=== PATIENT | male | born 1990 | race American Indian/Alaskan Native ===

== ENCOUNTER 2022-03-06 18:05 | Emergency (ER) | payer SELFPAY ==
[2022-03-06 21:03] LABS: Hemoglobin 13.2 gm/dl (11.8-15.2); Mean Corpuscular HGB Conc 34 % (32-34); Mean Corpuscular Volume 93 fl (84-94); Platelet Count 282 K/mm3 (140-440); Red Blood Count 4.21 M/mm3 (3.65-5.03); Red Cell Distribution Width 12.8 % (13.2-15.2)
[2022-03-06 21:24] LABS: Alanine Aminotransferase 122 units/L (7-56); Albumin 4.1 g/dL (3.9-5); Blood Urea Nitrogen 11 mg/dL (9-20); Calcium 9.4 mg/dL (8.4-10.2); Hemolysis Index 8
[2022-03-06 21:32] LABS: BUN/Creatinine Ratio 16
[2022-03-06] MEDS ORDERED: FAMOTIDINE 20 MG TAB PO ONE (21:40)
[2022-03-06] MEDS ORDERED: diphenhydrAMINE 25 MG CAP PO ONE (21:40)
[2022-03-06] MEDS ORDERED: predniSONE 20 MG TAB PO ONE (21:40)
--- NOTE | 2022-03-06 21:45 | Emergency Department Report ---
HPI - General Chief Complaint: Allergic Reaction Time Seen by Provider: 03/06/22 21:16 - HPI HPI: Room 4 The patient is a 31-year-old male present with chief complaint of allergic reaction. The patient states for the past 2 weeks he has broken out into a rash that is pruritic. Patient initially denies having any new exposures but then states he changed laundry detergents approximately 3 weeks ago. Patient also states for the past 2 weeks he has had intermittent sharp chest pain but does not have any currently. Patient denies history of cough or shortness of breath. ED Past Medical Hx - Past Medical History Previous Medical History?: No - Surgical History Past Surgical History?: No - Family History Family history: no significant - Social History Smoking Status: Never Smoker Substance Use Type: None (Denies illicit drug use), Alcohol (Occasional) - Medications Home Medications: Home Medications Medication Instructions Recorded Confirmed Last Taken Type Famotidine [Pepcid] 20 mg PO BID #6 tablet 03/06/22 Unknown Rx Prednisone [predniSONE 10 mg 10 mg PO .TAPER #1 03/06/22 Unknown Rx (6-Day Pack, 21 Tabs)] diphenhydrAMINE [Benadryl CAP] 50 mg PO Q6HR #24 capsule 03/06/22 Unknown Rx ED Review of Systems ROS: Stated complaint: RASH Other details as noted in HPI Constitutional: no symptoms reported Eyes: denies: eye pain ENT: denies: throat pain Respiratory: denies: cough, shortness of breath Cardiovascular: chest pain Endocrine: no symptoms reported Gastrointestinal: denies: abdominal pain Genitourinary: denies: dysuria Musculoskeletal: denies: back pain Skin: rash, pruritus Neurological: denies: headache Physical Exam - Physical Exam Vital Signs: Vital Signs 03/06/22 21:04 Temperature 98.4 F Pulse Rate 71 Respiratory 18 Rate Blood Pressure 133/90 [Left] O2 Sat by Pulse 100 Oximetry Physical Exam: GENERAL: The patient is well-developed well-nourished male lying on stretcher not appearing to be in acute distress. [] HEENT: Normocephalic. Atraumatic. Extraocular motions are intact. Patient has moist mucous membranes. NECK: Supple. Trachea midline CHEST/LUNGS: Clear to auscultation. There is no respiratory distress noted. HEART/CARDIOVASCULAR: Regular. There is no tachycardia. There is no gallop rub or murmur. ABDOMEN: Abdomen is soft, nontender. Patient has normal bowel sounds. There is no abdominal distention. SKIN: There is a diffuse urticarial rash overlying the trunk and extremities rash. There is no edema. There is no diaphoresis. NEURO: The patient is awake, alert, and oriented. The patient is cooperative. The patient has no focal neurologic deficits. The patient has normal speech. GCS 15 MUSCULOSKELETAL: T There is no evidence of acute injury. ED Course Vital Signs 03/06/22 21:04 Temperature 98.4 F Pulse Rate 71 Respiratory 18 Rate Blood Pressure 133/90 [Left] O2 Sat by Pulse 100 Oximetry ED Medical Decision Making - Lab Data Result diagrams: 03/06/22 20:47 03/06/22 20:47 - EKG Data -: EKG Interpreted by Mt EKG shows normal: sinus rhythm Rate: normal - EKG Data When compared to previous EKG there are: previous EKG unavailable Interpretation: other (Early repolarization) - Radiology Data Radiology results: report reviewed (CT chest), image reviewed (CT chest) [place] [id number] Cat Scan Report Signed Patient: ADAM HEALY MR#: [id number] : 1990 Acct:[id number] Age/Sex: 31 / M ADM Date: 03/06/22 Loc: ED Attending Dr: Ordering Physician: NELLY VALLE MD Date of Service: 03/06/22 Procedure(s): CT angio chest Accession Number(s): [id number] cc: NELLY VALLE MD CTA CHEST WITH CONTRAST INDICATION / CLINICAL INFORMATION: Chest pain. TECHNIQUE: Axial CT images were obtained through the chest after injection of 100 cc Omnipaque 300 IV contrast. 3 plane MIP and/or 3D reconstructions were produced. All CT scans at this location are performed using CT dose reduction for ALARA by means of automated exposure control. COMPARISON: None available. FINDINGS: VASCULAR FINDINGS: PULMONARY ARTERY: Pulmonary artery is normal in size. No filling defe cts are present compatible with pulmonary artery embolus.. THORACIC AORTA: No significant abnormality. CORONARY ARTERY CALCIFICATION: Absent -- None. NONVASCULAR FINDINGS: LOWER NECK: Soft tissues and musculature of the lower neck demonstrate no significant abnormality. The thyroid demonstrates no significant abnormality. HEART: No significant abnormality. MEDIASTINUM / DANIELLE: No significant abnormality. ESOPHAGUS: No significant abnormality. LYMPH NODES: Bilateral axillary adenopathy. LUNGS: No acute air space or interstitial disease. PLEURA: No pleural effusion. No pneumothorax. THORACIC SOFT TISSUES: No significant abnormality of the chest wall or upper thoracic musculature. BONES: No significant skeletal abnormalities. ADDITIONAL CHEST FINDINGS: None. UPPER ABDOMEN: No significant abnormality. IMPRESSION: 1. No CT evidence for pulmonary embolism. 2. No acute findings. 3. Bilateral axillary adenopathy of uncertain clinical significance. Signer Name: Blanca Borden II, MD Signed: 03/07/2022 12:35 AM Workstation Name: [id number] Transcribed By: GERMÁN Dictated By: BLANCA BORDEN II, MD Electronically Authenticated By: BLANCA BORDEN II, MD Signed Date/Time: 03/07/2234 DD/ TD/TT: - Differential Diagnosis Allergic reaction, costochondritis, PE, ACS, pericarditis, GERD Critical care attestation.: If time is entered above; I have spent that time in minutes in the direct care of this critically ill patient, excluding procedure time. ED Disposition Clinical Impression: Allergic reaction, Atypical chest pain, Leukopenia Disposition: HOME / SELF CARE / HOMELESS Is pt being admited?: No Does the pt Need Aspirin: No Condition: Stable Instructions: Allergies, Adult, Cygv-[id number], Nonspecific Chest Pain, Adult Additional Instructions: Return to the emergency department should you develop worsening symptoms, inability to tolerate food or liquids, high fever or any other concerns Prescriptions: diphenhydrAMINE [Benadryl CAP] 50 mg PO Q6HR #24 capsule Famotidine [Pepcid] 20 mg PO BID #6 tablet Prednisone [predniSONE 10 mg (6-Day Pack, 21 Tabs)] 10 mg PO .TAPER #1 Referrals: EDWAR GOODMAN MD [Staff Physician] - 3-5 Days (Dr. Goodman is an construction scheduler. Please follow-up with her for further evaluation) [facility] [Provider Group] - 3-5 Days (Please follow-up at the [facility] to be established as a patient for further evaluation) Time of Disposition: 00:42
--- NOTE | 2022-03-07 00:39 | Cat Scan Report ---
CTA CHEST WITH CONTRAST INDICATION / CLINICAL INFORMATION: Chest pain. TECHNIQUE: Axial CT images were obtained through the chest after injection of 100 cc Omnipaque 300 IV contrast. 3 plane MIP and/or 3D reconstructions were produced. All CT scans at this location are per formed using CT dose reduction for ALARA by means of automated exposure control. COMPARISON: None available. FINDINGS: VASCULAR FINDINGS: PULMONARY ARTERY: Pulmonary artery is normal in size. No filling defects are present compatible with pulmonary artery embolus.. THORACIC AORTA: No significant abnormality. CORONARY ARTERY CALCIFICATION: Absent -- None. NONVASCULAR FINDINGS: LOWER NECK: Soft tissues and musculature of the lower neck demonstrate no significant abnormality. Th e thyroid demonstrates no significant abnormality. HEART: No significant abnormality. MEDIASTINUM / DANIELLE: No significant abnormality. ESOPHAGUS: No significant abnormality. LYMPH NODES: Bilateral axillary adenopathy. LUNGS: No acute air space or interstitial disease. PLEURA: No pleural effusion. No pneumothorax. THORACIC SOFT TISSUES: No significant abnormality of the chest wall or upper thoracic musculature. BONES: No significant skeletal abnormalities. ADDITIONAL CHEST FINDINGS: None. UPPER ABDOMEN: No significant abnormality. IMPRESSION: 1. No CT evidence for pulmonary embolism. 2. No acute findings. 3. Bilateral axillary adenopathy of uncertain clinical significance. Signer Name: Kurt Lindquist II, MD Signed: 03/07/2022 12:35 AM Workstation Name: [id number]
[2022-03-07 00:57] VITALS: BP 119/77
--- NOTE | 2022-03-07 13:48 | Electrocardiograph Report ---
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
== END 2022-03-07 00:58 | disposition home or self-care (01) ==
LOC: EDBD 18:05 → ED 18:05
DX: T78.40XA Allergy, unspecified, initial encounter (principal); R07.89 Other chest pain; D72.819 Decreased white blood cell count, unspecified; X58.XXXA Exposure to other specified factors, initial encounter
CPT/HCPCS: 36415; 71275; 80053; 84484; 85027; 85379; 93005; 99284; Q9967

== ENCOUNTER 2022-07-19 07:50 | Emergency (ER) | payer SELFPAY ==
--- NOTE | 2022-07-19 12:28 | XRay Report ---
CHEST 2 VIEWS INDICATION / CLINICAL INFORMATION: cough. COMPARISON: None available. FINDINGS: SUPPORT DEVICES: None. HEART / MEDIASTINUM: No significant abnormality. LUNGS / PLEURA: No significant pulmonary or pleural abnormality. No pneumothorax. ADDITIONAL FINDINGS: No significant additional findings. IMPRESSION: 1. No acute findings. Signer Name: Rodrigo Antoine Jr, MD Signed: 07/19/2022 12:24 PM Workstation Name: [id number]
--- NOTE | 2022-07-19 13:04 | Emergency Department Report ---
ED General Adult HPI - General Chief complaint: Pain General Stated complaint: PAIN BODY Source: patient Mode of arrival: Ambulatory Limitations: No Limitations - History of Present Illness Initial comments: 31-year-old male presented ED complaining generalized body ache with fever and chills x5 days. Patient denies any cough, nausea or vomiting. Patient denies taking any prior medication [id number]. Patient denies any shortness of breath or chest pain at present time. Patient is alert and oriented x3. No acute distress noted. No ill appearance noted. - Related Data Previous Rx's Medication Instructions Recorded Last Taken Type Famotidine [Pepcid] 20 mg PO BID #6 tablet 03/06/22 Unknown Rx Prednisone [predniSONE 10 mg 10 mg PO .TAPER #1 03/06/22 Unknown Rx (6-Day Pack, 21 Tabs)] diphenhydrAMINE [Benadryl CAP] 50 mg PO Q6HR #24 capsule 03/06/22 Unknown Rx Ketorolac [Toradol] 10 mg PO Q6H PRN 15 Days #30 tab 07/19/22 Unknown Rx Allergies Allergy/AdvReac Type Severity Reaction Status Date / Time No Known Allergies Allergy Verified 07/19/22 07:57 ED Review of Systems ROS: Stated complaint: PAIN BODY Other details as noted in HPI Constitutional: denies: chills, fever Eyes: denies: eye pain, eye discharge, vision change ENT: denies: ear pain, throat pain Respiratory: cough. denies: shortness of breath, wheezing Cardiovascular: denies: chest pain, palpitations Endocrine: no symptoms reported Gastrointestinal: denies: abdominal pain, nausea, diarrhea Genitourinary: denies: urgency, dysuria Musculoskeletal: denies: back pain, joint swelling, arthralgia Skin: denies: rash, lesions Neurological: denies: headache, weakness, paresthesias Psychiatric: denies: anxiety, depression Hematological/Lymphatic: denies: easy bleeding, easy bruising ED Past Medical Hx - Past Medical History Hx Asthma: Yes - Social History Smoking Status: Never Smoker Substance Use Type: None (Denies illicit drug use), Alcohol (Occasional) - Medications Home Medications: Home Medications Medication Instructions Recorded Confirmed Last Taken Type Famotidine [Pepcid] 20 mg PO BID #6 tablet 03/06/22 Unknown Rx Prednisone [predniSONE 10 mg 10 mg PO .TAPER #1 03/06/22 Unknown Rx (6-Day Pack, 21 Tabs)] diphenhydrAMINE [Benadryl CAP] 50 mg PO Q6HR #24 capsule 03/06/22 Unknown Rx Ketorolac [Toradol] 10 mg PO Q6H PRN 15 Days #30 tab 07/19/22 Unknown Rx ED Physical Exam - General Limitations: No Limitations General appearance: alert, in no apparent distress - Head Head exam: Present: atraumatic, normocephalic - Eye Eye exam: Present: normal appearance - ENT ENT exam: Present: mucous membranes moist - Neck Neck exam: Present: normal inspection - Respiratory Respiratory exam: Present: normal lung sounds bilaterally. Absent: respiratory distress - Cardiovascular Cardiovascular Exam: Present: regular rate, normal rhythm. Absent: systolic murmur, diastolic murmur, rubs, gallop - GI/Abdominal GI/Abdominal exam: Present: soft, normal bowel sounds - Rectal Rectal exam: Present: deferred - Extremities Exam Extremities exam: Present: normal inspection - Back Exam Back exam: Present: normal inspection - Neurological Exam Neurological exam: Present: alert, oriented X3 - Psychiatric Psychiatric exam: Present: normal affect, normal mood - Skin Skin exam: Present: warm, dry, intact, normal color. Absent: rash ED Course Vital Signs 07/19/22 07/19/22 07:54 13:00 Temperature 99.0 F 98.4 F Pulse Rate 89 86 Respiratory 16 16 Rate Blood Pressure 139/84 Blood Pressure 134/87 [Right] O2 Sat by Pulse 99 98 Oximetry ED Medical Decision Making - Radiology Data [facility] [address] [place] [address] XRay Report Signed Patient: ADAM HEALY MR#: [id number] : 1990 Acct:[id number] Age/Sex: 31 / M ADM Date: 07/19/22 Loc: ED Attending Dr: Ordering Physician: HILDA TRUJILLO Date of Service: 07/19/22 Procedure(s): XR chest routine 2V Accession Number(s): [id number] cc: HILDA TRUJILLO Fluoro Time In Minutes: CHEST 2 VIEWS INDICATION / CLINICAL INFORMATION: cough. COMPARISON: None available. FINDINGS: SUPPORT DEVICES: None. HEART / MEDIASTINUM: No significant abnormality. LUNGS / PLEURA: No significant pulmonary or pleural abnormality. No pneumothorax. ADDITIONAL FINDINGS: No significant additional findings. IMPRESSION: 1. No acute findings. Signer Name: Rodrigo Antoine Jr, MD Signed: 07/19/2022 12:24 PM Workstation Name: [id number] Transcribed By: NATHALIE Dictated By: RODRIGO ANTOINE JR, MD Electronically Authenticated By: RODRIGO ANTOIEN JR, MD Signed Date/Time: 07/19/221223 DD/ 23 TD/TT: - Medical Decision Making 31-year-old male presented ED complaining generalized body ache with fever and chills x5 days. Patient denies any cough nausea or vomiting. Patient denies taking any prior medication [id number]. Patient denies any shortness of breath or chest pain at present time. Patient is alert and oriented x3. No acute distress noted. No ill appearance noted. Physical examination is unremarkable. Chest x-ray showed no abnormality Rechecked the patient is resting quietly , comfortable and feeling better. I discussed the results of diagnostic study, my clinical impression and the plan for further treatment with the patient. Patient agrees with plan and discharge at this present time. All question addressed. I have given the patient instruction regarding a diagnosis ,expectation ,follow- up and return precaution. I explained to the patient that emergent condition may arise and to return to the ED for new worsen and any new persisting condition. I have explained the importance of following up with the primary care physician or referral physician listed below has instructed. The patient verbalized understanding of discharge instruction. Critical care attestation.: If time is entered above; I have spent that time in minutes in the direct care of this critically ill patient, excluding procedure time. ED Disposition Clinical Impression: Generalized body aches Disposition: 01 HOME / SELF CARE / HOMELESS Is pt being admited?: No Does the pt Need Aspirin: No Condition: Stable Instructions: Musculoskeletal Pain Additional Instructions: Take medication as prescribed Prescriptions: Ketorolac [Toradol] 10 mg PO Q6H PRN 15 Days #30 tab PRN Reason: Pain Referrals: SONA EASLEY MD [Primary Care Provider] - 3-5 Days Forms: Work/School Release Form(ED) Time of Disposition: 13:04
[2022-07-19 13:08] VITALS: BP 134/87
== END 2022-07-19 13:16 | disposition home or self-care (01) ==
LOC: ED 07:50
DX: M79.18 Myalgia, other site (principal); R50.9 Fever, unspecified; J45.909 Unspecified asthma, uncomplicated; Z79.899 Other long term (current) drug therapy
CPT/HCPCS: 71046; 99283